=== PATIENT | female | born 1975 | race Caucasian/White ===

== ENCOUNTER 2023-12-06 13:52 | Outpatient (CLI) | payer OTHER | END 2023-12-06 23:59 | disposition home or self-care (01) | LOC: MRI 13:52 | PROVIDERS: ATTEND Nurse Practitioner | DX: S46.911D Strain of unspecified muscle, fascia and tendon at shoulder and upper arm level, right arm, subsequent encounter (principal); X58.XXXD Exposure to other specified factors, subsequent encounter ==

== ENCOUNTER 2023-12-16 14:14 | Outpatient (CLI) | payer OTHER | END 2023-12-16 23:59 | disposition home or self-care (01) | LOC: MRI 14:14 | PROVIDERS: ATTEND Nurse Practitioner | DX: S46.911D Strain of unspecified muscle, fascia and tendon at shoulder and upper arm level, right arm, subsequent encounter (principal); M75.51 Bursitis of right shoulder; X58.XXXD Exposure to other specified factors, subsequent encounter | CPT/HCPCS: 73221 ==

== ENCOUNTER 2024-07-26 22:31 | Emergency (ER) | payer OTHER ==
[~2024-07-26] VITALS: Ht 162.6 cm; Wt 59.0 kg
[2024-07-26] MEDS: meclizine 12.5mg tablet PO ONE (22:45)
[2024-07-26] MEDS ORDERED: LORazepam 1 MG tablet PO ONE (22:45)
--- NOTE | 2024-07-26 23:40 | Physician Documentation ---
History of Present Illness ~ Chief Complaint: Dizziness Stated Complaint: DIZZYNESS Time Seen by MD: 22:45 Primary Medical Doctor: DR. MAGEN PITTMAN Source: patient Mode of Arrival: POV HPI 48-year-old female presenting for dizzy episode. She was lying flat on her back under the car when she hyper extended her neck and became lightheaded and dizzy. She had reoccurrence of her symptoms with sitting up. She has history of tachycardia bradycardia for which she has been thoroughly evaluated by Cardiology including recent cardiac catheterization as well as ultrasound and Holter which have all been unremarkable. She denies any chest pain or abdominal pain no fevers chills headache Medication Reconciliation Allergies: Coded Allergies: iodine (Verified Allergy, Unknown, 07/26/24) TOPICAL IODINE Review of Systems All Other Systems at this time: Reviewed and Negative Physical Exam Vital Signs: Heart Rate: 64, Respiratory Rate: 16, BP: 122/74, Pulse Oximetry: 100, Weight: 59.000 Oxygen Flow Rate: 0 Physical Exam Well-appearing no distress HEENT atraumatic no nystagmus Negative Reilly-Hallpike Cardiopulmonary clear to auscultation bilaterally no murmur Neuro awake alert oriented Progress Progress Note I independently interpreted her labs no leukocytosis no JEMIMA no electrolyte abnormalities Results/Orders Reviewed/noted all lab results: Yes Results/Orders Completed Orders - ARTIS BEY MD Lorazepam Tablet (Ativan Tablet) (07/26/24 22:45) Meclizine Tablets (Antivert Tablet) (07/26/24 22:45) Cbc/Diff (07/27/24 00:04) BMP (07/27/24 00:04) MG (07/27/24 00:04) Electrocardiogram (07/27/24 ) Vital Signs 07/26/24 07/26/24 07/26/24 07/27/24 22:33 23:02 23:42 00:09 Pulse 64 63 55 61 63 Resp 19 16 18 B/P (MAP) 122/74 135/62 (86) 119/74 120/72 128/76 Pulse Ox 100 100 O2 Flow Rate 0 07/27/24 01:00 Pulse 57 Resp 16 B/P (MAP) 109/69 (82) Pulse Ox 100 Laboratory Tests Test 07/27/24 00:43 White Blood Count 9.7 Red Blood Count 3.71 L Hemoglobin 12.4 Hematocrit 35.7 Mean Corpuscular Volume 96.2 Mean Corpuscular Hemoglobin 33.3 H Mean Corpuscular Hemoglobin Concent 34.6 Red Cell Distribution Width 12.3 Platelet Count 269 Mean Platelet Volume 7.2 L Neutrophils (%) (Auto) 55.7 Lymphocytes (%) (Auto) 35.4 Monocytes (%) (Auto) 5.1 Eosinophils (%) (Auto) 3.0 Basophils (%) (Auto) 0.8 Neutrophils # (Auto) 5.4 Lymphocytes # (Auto) 3.4 Monocytes # (Auto) 0.5 Eosinophils # (Auto) 0.3 Basophils # (Auto) 0.1 CBC Comment Sodium Level 144 Potassium Level 3.6 Chloride Level 110 H Carbon Dioxide Level 26.7 Anion Gap 7 L Blood Urea Nitrogen 8 Creatinine 0.62 Estimated GFR/1.73 m2 > 90 BUN/Creatinine Ratio 12.9 Glucose Level 94 Calcium Level 8.2 L Magnesium Level 2.1 Albumin 3.4 Chemistry Comments EKG/XRAY/CT/US/VASC/MRI EKG : Additional Comment EKG independently interpreted by myself time 1:48 a.m. indication dizziness sinus bradycardia rate 48 normal axis normal intervals no ST or T-wave abnormalities Medical Decision Making Additional Information Arrhythmia, pulmonary embolism, CVA, BPV Departure Disposition: 01 HOME / SELF CARE / HOMELESS Impression: Primary Impression: Sinus bradycardia Additional Instructions: Your blood tests and EKG were all reassuring in his safe for you to go home. 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 If you have any episodes of fainting please return to the emergency department Referrals: NO PRIMARY CARE PROVIDER (PCP) Signature Scribe Signature: shannon Attestation: ARTIS Marcano MD July 26, 2024 23:40
[2024-07-27 00:55] LABS: BASOPHILS # (AUTO) 0.1 X10'3 (0-0.2); BASOPHILS % (AUTO) 0.8 % (0-1); EOSINOPHILS # (AUTO) 0.3 X10'3 (0-0.9); HEMATOCRIT 35.7 % (35.0-45.0); HEMOGLOBIN 12.4 g/dl (12.0-16.0); LYMPHOCYTES # (AUTO) 3.4 X10'3 (1.1-4.8); LYMPHOCYTES % (AUTO) 35.4 % (21-51); MEAN CORPUSCULAR HEMOGLOBIN 33.3 PG (27.0-31.0); MEAN CORPUSCULAR HGB CONC 34.6 g/dL (33.0-36.5); MEAN CORPUSCULAR VOLUME 96.2 FL (78-98); MEAN PLATELET VOLUME 7.2 FL (7.4-10.4); MONOCYTES # (AUTO) 0.5 X10'3 (0-0.9); MONOCYTES % (AUTO) 5.1 % (2-12); NEUTROPHILS # (AUTO) 5.4 X10'3 (1.8-7.7); NEUTROPHILS % (AUTO) 55.7 % (42-75); PLATELET COUNT 269 X10'3 (140-440); RED BLOOD COUNT 3.71 X10'6 (4.20-5.60); RED CELL DISTRIBUTION WIDTH 12.3 % (11.5-14.5); WHITE BLOOD COUNT 9.7 X10'3 (4.5-11.0)
[2024-07-27 01:05] LABS: ALBUMIN 3.4 G/DL (3.4-5.0); ANION GAP 7 (8-16); BLOOD UREA NITROGEN 8 MG/DL (7-18); BUN/CREATININE RATIO 12.9 (10.0-20.0); CALCIUM 8.2 MG/DL (8.5-10.1); CHLORIDE 110 MMOL/L (99-107); CREATININE 0.62 MG/DL (0.40-0.90); GLUCOSE 94 MG/DL (70-104); MAGNESIUM 2.1 MG/DL (1.5-2.4); POTASSIUM 3.6 MMOL/L (3.5-5.1); SODIUM 144 MMOL/L (135-145); TOTAL CARBON DIOXIDE 26.7 MMOL/L (24-32); eCRCL 98 ML/MIN; eGFR > 90 ML/MIN
--- NOTE | 2024-07-27 01:52 | ELECTROCARDIOGRAPH REPORT ---
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 Demi Castillo Measurements Intervals [place] Rate: 48 P: 77 AK: 152 QRS: 87 QRSD: 102 T: 77 QT: 440 QTc: 394 Interpretive Statements Sinus bradycardia Electronically Signed On 07-27-2024 18:50:[address] Demi Castillo Please click the below link to view image of tracing.
[2024-07-27 02:12] VITALS: BP 127/77; PULSE 60; RESP 16; O2SAT 100
== END 2024-07-27 02:37 | disposition home or self-care (01) ==
LOC: ER 22:32
DX: R00.1 Bradycardia, unspecified (principal); Z88.8 Allergy status to other drugs, medicaments and biological substances; Z91.041 Radiographic dye allergy status
CPT/HCPCS: 36415; 80048; 83735; 85025; 93005; 99285